=== PATIENT | male | born 1995 | race Caucasian/White ===

== ENCOUNTER 2017-03-04 07:10 | Emergency (ER) | payer BC, OTHER ==
[~2017-03-04] VITALS: Ht 182.9 cm; Wt 77.1 kg
--- NOTE | 2017-03-04 07:38 | ED GI ---
General Chief Complaint: Abdominal/GI Problems Stated Complaint: DIARRHEA Source of Information: Patient Exam Limitations: No Limitations History of Present Illness Time Seen By Provider: 07:36 Initial Comments Patient has been ill since yesterday with loose stools and lower abdominal pain. This morning his stool was mixed with bright red blood. He denies fever nausea or vomiting. He has no appetite. He has been otherwise well. Allergies and Home Medications Allergies Coded Allergies: Sulfa (Sulfonamide Antibiotics) (Verified Allergy, Unknown, 03/04/17) Review of Systems Constitutional: no symptoms reported EENTM: No Symptoms Reported Respiratory: No Symptoms Reported Cardiovascular: No Symptoms Reported Gastrointestinal: Abdominal Pain, Blood Streaked Stools, Denies Nausea, Denies Vomiting Musculoskeletal: no symptoms reported Skin: no symptoms reported All Other Systems Reviewed Negative Unless Noted: Yes Past Duxyhmw-Cfukdb-Jceeht Hx Patient Social History Alcohol Use: Denies Use Smoking Status: Never a Smoker Recent Foreign Travel: No Contact w/Someone Who Travel: No Reviewed Nursing Assessment Reviewed/Agree w Nursing PMH: Yes Physical Exam Vital Signs VS - Last 72 Hours, by Label 03/04/17 07:24 Temp 98.3 Pulse 91 Resp 18 B/P (MAP) 128/76 Pulse Ox 96 O2 Delivery Room Air Capillary Refill : General Appearance: WD/WN HEENT: pharynx normal Neck: supple Respiratory: lungs clear, normal breath sounds Cardiovascular: regular rate, rhythm Gastrointestinal: soft, No guarding, No rebound, tenderness (tender right lower quadrant) Genital/Rectal: heme positive stool (no hemorrhoids or fissures seen) Extremities: normal inspection Neurologic/Psychiatric: alert, normal mood/affect Skin: normal color, warm/dry Progress/Results/Core Measures Results/Orders Lab Results Laboratory Tests Test 03/04/17 07:38 Range/Units White Blood Count 11.3 H 4.3-11.0 10^3/uL Red Blood Count 5.29 4.35-5.85 10^6/uL Hemoglobin 15.6 13.3-17.7 G/DL Hematocrit 46 40-54 % Mean Corpuscular Volume 87 80-99 FL Mean Corpuscular Hemoglobin 30 25-34 PG Mean Corpuscular Hemoglobin Concent 34 32-36 G/DL Red Cell Distribution Width 12.9 10.0-14.5 % Platelet Count 200 130-400 10^3/uL Mean Platelet Volume 11.7 H 7.4-10.4 FL Neutrophils (%) (Auto) 78 H 42-75 % Lymphocytes (%) (Auto) 13 12-44 % Monocytes (%) (Auto) 8 0-12 % Eosinophils (%) (Auto) 1 0-10 % Basophils (%) (Auto) 0 0-10 % Neutrophils # (Auto) 8.8 H 1.8-7.8 X 10^3 Lymphocytes # (Auto) 1.5 1.0-4.0 X 10^3 Monocytes # (Auto) 0.9 0.0-1.0 X 10^3 Eosinophils # (Auto) 0.1 0.0-0.3 10^3/uL Basophils # (Auto) 0.0 0.0-0.1 10^3/uL Sodium Level 142 135-145 MMOL/L Potassium Level 4.2 3.6-5.0 MMOL/L Chloride Level 107 98-107 MMOL/L Carbon Dioxide Level 25 21-32 MMOL/L Anion Gap 10 5-14 MMOL/L Blood Urea Nitrogen 11 7-18 MG/DL Creatinine 1.04 0.60-1.30 MG/DL Estimat Glomerular Filtration Rate > 60 BUN/Creatinine Ratio 11 Glucose Level 116 H 70-105 MG/DL Calcium Level 10.2 H 8.5-10.1 MG/DL Total Bilirubin 0.5 0.1-1.0 MG/DL Aspartate Amino Transf (AST/SGOT) 22 5-34 U/L Alanine Aminotransferase (ALT/SGPT) 27 0-55 U/L Alkaline Phosphatase 88 40-136 U/L Total Protein 7.5 6.4-8.2 G/DL Albumin 4.5 3.2-4.5 G/DL My Orders Orders - MARY WARREN MD Cbc With Automated Diff (03/04/17 07:28) Comprehensive Metabolic Panel (03/04/17 07:28) Ua Culture If Indicated (03/04/17 07:28) Ct Abd/Pelv W (Appendicitis) (03/04/17 07:31) Saline Lock/Iv-Start (03/04/17 07:47) Occult Blood Stool (03/04/17 08:05) Vital Signs/I&O Vital Sign - Last 12Hours 03/04/17 07:24 Temp 98.3 Pulse 91 Resp 18 B/P (MAP) 128/76 Pulse Ox 96 O2 Delivery Room Air Progress Note : Time: 08:43 Progress Note Patient awake alert and comfortable. I discussed the CT results with him. He understands need for follow-up if not improving. Diagnostic Imaging Comments Date of Exam: 03/04/17 CT ABD/PELV W (APPENDICITIS) PROCEDURE: CT abdomen and pelvis with contrast, rule out appendicitis. TECHNIQUE: Multiple contiguous axial images were obtained through the abdomen and pelvis after the administration of intravenous contrast. INDICATION: Bloody stools, nausea and diarrhea. FINDINGS: The heart size is normal. The lung bases are clear. The liver is normal in size without focal lesions. Gallbladder is nondistended. There does appear to be cholelithiasis. Spleen is normal. The pancreas, adrenal glands and kidneys are unremarkable. The kidneys are normal. Abdominal aorta is nonaneurysmal. Bowel gas pattern is nonspecific. There is no free air. There is no ascites. There is no pelvic mass, adenopathy or free fluid. The appendix is normal. There is questionable mild mucosal thickening of the descending colon. This is nonspecific however may reflect colitis. The osseous structures are unremarkable. There is no pelvic mass, adenopathy or free fluid. IMPRESSION: Cholelithiasis. Unremarkable appendix. Questionable mucosal thickening in the descending and sigmoid colon. Mild colitis cannot be excluded. Recommend clinical correlation. No other acute abnormality of the abdomen or pelvis. Departure Impression Impression: Primary Impression: Acute colitis Disposition: 01 HOME, SELF-CARE Condition: Stable Departure-Patient Inst. Decision time for Depature: 08:42 Referrals: NO,LOCAL PHYSICIAN (PCP) Primary Care Physician Patient Instructions: Diarrhea in Adolescents and Adults Add. Discharge Instructions: Clear liquids for next several days. See your doctor or return to the emergency department if bleeding and pain continue or you develop a fever. All discharge instructions reviewed with patient and/or family. Voiced understanding. MARY WARREN MD Mar 04, 2017 07:38
[2017-03-04 07:51] LABS: BASOPHILS % (AUTO) 0 % (0-10); EOSINOPHILS # (AUTO) 0.1 10^3/uL (0.0-0.3); EOSINOPHILS % (AUTO) 1 % (0-10); LYMPHOCYTES # (AUTO) 1.5 X 10^3 (1.0-4.0); LYMPHOCYTES % (AUTO) 13 % (12-44); MEAN CORPUSCULAR HEMOGLOBIN 30 PG (25-34); MEAN CORPUSCULAR HGB CONC 34 G/DL (32-36); MEAN CORPUSCULAR VOLUME 87 FL (80-99); MEAN PLATELET VOLUME 11.7 FL (7.4-10.4); MONOCYTES # (AUTO) 0.9 X 10^3 (0.0-1.0); MONOCYTES % (AUTO) 8 % (0-12); NEUTROPHILS # (AUTO) 8.8 X 10^3 (1.8-7.8); NEUTROPHILS % (AUTO) 78 % (42-75); PLATELET COUNT 200 10^3/uL (130-400); RED BLOOD COUNT 5.29 10^6/uL (4.35-5.85); RED CELL DISTRIBUTION WIDTH 12.9 % (10.0-14.5); WHITE BLOOD COUNT 11.3 10^3/uL (4.3-11.0)
[2017-03-04 08:11] LABS: ALANINE AMINOTRANSFERASE 27 U/L (0-55); ALBUMIN 4.5 G/DL (3.2-4.5); ANION GAP 10 MMOL/L (5-14); ASPARTATE AMINO TRANSFERASE 22 U/L (5-34); BILIRUBIN,TOTAL 0.5 MG/DL (0.1-1.0); BLOOD UREA NITROGEN 11 MG/DL (7-18); BUN/CREATININE RATIO 11; CALCIUM 10.2 MG/DL (8.5-10.1); CARBON DIOXIDE 25 MMOL/L (21-32); CHLORIDE 107 MMOL/L (98-107); CREATININE SERUM 1.04 MG/DL (0.60-1.30); GFR ESTIMATED > 60; GLUCOSE 116 MG/DL (70-105); POTASSIUM 4.2 MMOL/L (3.6-5.0); SODIUM 142 MMOL/L (135-145); TOTAL PROTEIN 7.5 G/DL (6.4-8.2)
--- NOTE | 2017-03-04 08:37 | Diagnostic Imaging Report ---
PROCEDURE: CT abdomen and pelvis with contrast, rule out appendicitis. TECHNIQUE: Multiple contiguous axial images were obtained through the abdomen and pelvis after the administration of intravenous contrast. INDICATION: Bloody stools, nausea and diarrhea. FINDINGS: The heart size is normal. The lung bases are clear. The liver is normal in size without focal lesions. Gallbladder is nondistended. There does appear to be cholelithiasis. Spleen is normal. The pancreas, adrenal glands and kidneys are unremarkable. The kidneys are normal. Abdominal aorta is nonaneurysmal. Bowel gas pattern is nonspecific. There is no free air. There is no ascites. There is no pelvic mass, adenopathy or free fluid. The appendix is normal. There is questionable mild mucosal thickening of the descending colon. This is nonspecific however may reflect colitis. The osseous structures are unremarkable. There is no pelvic mass, adenopathy or free fluid. IMPRESSION: Cholelithiasis. Unremarkable appendix. Questionable mucosal thickening in the descending and sigmoid colon. Mild colitis cannot be excluded. Recommend clinical correlation. No other acute abnormality of the abdomen or pelvis. Dictated by: Dictated on workstation # [id number]
[2017-03-04 09:05] VITALS: BP 128/76
== END 2017-03-04 09:05 | disposition home or self-care (01) ==
LOC: ER 07:13
DX: K52.9 Noninfective gastroenteritis and colitis, unspecified (principal); K80.20 Calculus of gallbladder without cholecystitis without obstruction
CPT/HCPCS: 36415; 74177; 80053; 85025